=== PATIENT | male | born 1955 | race African-American/Black ===

== ENCOUNTER 2018-09-01 08:25 | Inpatient (IN) ==
[2018-09-01] MEDS ORDERED: SODIUM CHLORIDE 0.9% 1,000 ML IV STA (10:41)
[2018-09-01] MEDS ORDERED: ONDANSETRON ODT 4 MG TABLET PO STA (10:41)
[2018-09-01] MEDS ORDERED: KETOROLAC 30 MG/1 ML VIAL IV STA (10:41)
[2018-09-01 11:01] LABS: Basophils # 0.1 10*3/uL (0.0-0.2); Basophils % 0.3 % (0.0-0.8); Eosinophils % 0.1 % (0.00-10.9); Hematocrit 27.9 VOL% (42.0-52.0); Hemoglobin 8.2 GM/DL (14.0-18.0); Immature Granulocytes % 0.6 %; Lymphocytes # 1.6 10*3/uL (1.4-4.0); Lymphocytes % 9.7 % (21.2-54.2); Mean Corpuscular HGB Conc 29.4 GM/DL (32-36); Mean Corpuscular Hemoglobin 23 PG (27-34); Mean Corpuscular Volume 77.9 FL (87-102); Mean Platelet Volume 11.5 FL (9.6-12.0); Monocytes % 12.3 % (1.7-12.7); Neutrophils # 12.7 10*3/uL (1.4-7.4); Platelet Count 418 T/CUMM (130-400); Red Blood Count 3.58 MC/CUMM (3.8-5.5); Red Cell Distribution Width 16.7 % (9.3-17.3); White Blood Count 16.5 T/CUMM (4-12)
[2018-09-01 11:28] LABS: Alanine Aminotransferase 42 U/L (16-61); Albumin 4.7 G/DL (3.4-5.0); Alkaline Phosphatase 74 U/L (45-117); Aspartate Amino Transferase 19 U/L (0-37); Blood Urea Nitrogen 38 MG/DL (7-18); Calcium 9.9 MG/DL (8.5-10.1); Glucose 122 MG/DL (74-106); Osmolality,Calculated 282.8 MOS/KG (273-304); Potassium 3.8 MMOL/L (3.5-5.1); Sodium 137 MMOL/L (136-145); Total Protein 8.9 G/DL (6.4-8.3)
[2018-09-01 13:03] LABS: Apearance,Urine Slightly Hazy (Clear); Bilirubin,Urine Negative (Negative); Blood, Urine Negative (Negative); Glucose,Urine (UA) Negative (Negative); Granular Casts,Urine 1 /LPF (0-1); Hyaline Casts,Urine 4 /LPF (0-3); Ketones,Urine Negative (Negative); Mucus,Urine Occasional /LPF (Occasional); Nitrite,Urine Negative (Negative); Protein,Urine Negative; RBC,Urine 1 /HPF (0-4); Urine Color Yellow (Yellow); Urine Specific Gravity 1.018 (1.001-1.035); Urine Urobilinogen < 2.0 EU/DL (0.2-1.0); WBC,Urine 2 /HPF (0-6)
[2018-09-01] MEDS ORDERED: ONDANSETRON 4 MG/2 ML VIAL IV PRN (13:06)
[2018-09-01] MEDS ORDERED: ACETAMINOPHEN 325 MG TABLET PO PRN (13:06)
[2018-09-01] MEDS ORDERED: MINERAL OIL ENEMA 133 ML BOTTLE RECTAL PRN (13:10)
[2018-09-01] MEDS ORDERED: MINERAL OIL ENEMA 133 ML BOTTLE RECTAL ONE (13:10)
[2018-09-01] MEDS: LACTULOSE 20 GM/30 ML UDCUP PO SCH ×2 (14:36→17:51)
[2018-09-01] MEDS: SODIUM CHLORIDE 0.45% 1,000 ML IV SCH (14:36)
[2018-09-01] MEDS ORDERED: HYDROCORTISONE 2.5% RECTAL CREAM 30 GM TUBE TOP PRN (15:12)
[2018-09-01] MEDS: DOCUSATE SODIUM 100 MG CAPSULE PO SCH ×2 (17:05→20:33)
[2018-09-01] MEDS: POLYETHYLENE GLYCOL POWDER 17 GM PACK PO SCH ×2 (17:05→20:33)
[2018-09-01] MEDS: cefTRIAXone 2,000 MG in SYRINGE 1 EACH IV SCH (17:06)
[2018-09-01] MEDS: ENOXAPARIN 40 MG/0.4 ML SYRINGE SUBCUT SCH (20:33)
[2018-09-01] MEDS ORDERED: SENNA 8.6 MG TABLET PO SCH (21:00)
[2018-09-02] MEDS: LACTULOSE 20 GM/30 ML UDCUP PO SCH ×4 (01:12→08:37)
[2018-09-02 06:47] LABS: Basophils % 0.2 % (0.0-0.8); Eosinophils % 0.1 % (0.00-10.9); Hematocrit 24.2 VOL% (42.0-52.0); Hemoglobin 7.2 GM/DL (14.0-18.0); Immature Granulocytes % 0.7 %; Immature Granulocytes Absolute 0.09 #; Lymphocytes # 1.1 10*3/uL (1.4-4.0); Lymphocytes % 8.9 % (21.2-54.2); Mean Corpuscular HGB Conc 29.8 GM/DL (32-36); Mean Corpuscular Hemoglobin 23 PG (27-34); Mean Corpuscular Volume 77.8 FL (87-102); Mean Platelet Volume 11.1 FL (9.6-12.0); Monocytes # 1.3 10*3/uL (0.11-0.8); Monocytes % 10.5 % (1.7-12.7); Neutrophils # 10.1 10*3/uL (1.4-7.4); Neutrophils % 79.6 % (38.7-73.9); Platelet Count 303 T/CUMM (130-400); Red Blood Count 3.11 MC/CUMM (3.8-5.5); Red Cell Distribution Width 16.5 % (9.3-17.3); White Blood Count 12.6 T/CUMM (4-12)
[2018-09-02 06:50] LABS: Basophils % 0.2 % (0.0-0.8); Eosinophils % 0.1 % (0.00-10.9); Hematocrit 23.8 VOL% (42.0-52.0); Hemoglobin 7.1 GM/DL (14.0-18.0); Immature Granulocytes % 0.5 %; Immature Granulocytes Absolute 0.07 #; Lymphocytes # 1.1 10*3/uL (1.4-4.0); Lymphocytes % 8.1 % (21.2-54.2); Mean Corpuscular HGB Conc 29.8 GM/DL (32-36); Mean Corpuscular Hemoglobin 23 PG (27-34); Mean Corpuscular Volume 77.3 FL (87-102); Mean Platelet Volume 10.9 FL (9.6-12.0); Monocytes # 1.3 10*3/uL (0.11-0.8); Monocytes % 9.7 % (1.7-12.7); Neutrophils # 10.9 10*3/uL (1.4-7.4); Neutrophils % 81.4 % (38.7-73.9); Platelet Count 320 T/CUMM (130-400); Red Blood Count 3.08 MC/CUMM (3.8-5.5); Red Cell Distribution Width 16.4 % (9.3-17.3); White Blood Count 13.4 T/CUMM (4-12)
[2018-09-02 07:25] LABS: Ferritin 20.8 ng/ml (26-388)
[2018-09-02 07:31] LABS: Calcium 8.9 MG/DL (8.5-10.1); Osmolality,Calculated 279.2 MOS/KG (273-304); Potassium 4.1 MMOL/L (3.5-5.1); Thyroid Stimulating Hormone 0.41 uIU/ml (0.358-3.74)
[2018-09-02 07:36] LABS: Folate 12.9 NG/ML (5.4-24.0); Vitamin B12 687 PG/ML (211-911)
[2018-09-02 07:58] LABS: Sedimentation Rate-Westergren 100 MM/HR (0-20)
[2018-09-02] MEDS: SODIUM CHLORIDE 0.45% 1,000 ML IV SCH ×4 (08:34→20:44)
[2018-09-02] MEDS: amLODIPine 5 MG TABLET PO SCH (08:34)
[2018-09-02] MEDS: POLYETHYLENE GLYCOL POWDER 17 GM PACK PO SCH ×2 (08:35→20:44)
[2018-09-02] MEDS: DOCUSATE SODIUM 100 MG CAPSULE PO SCH ×2 (08:35→20:44)
[2018-09-02] MEDS ORDERED: IRON SUCROSE 300 MG in SODIUM CHLORIDE 0.9% 100 ML IV ONE (09:31)
[2018-09-02] MEDS ORDERED: SODIUM CHLORIDE 0.9% 1,000 ML IV PRN (09:32)
[2018-09-02] MEDS: cefTRIAXone 2,000 MG in SYRINGE 1 EACH IV SCH (16:31)
[2018-09-02] MEDS: CYPROHEPTADINE 4 MG TABLET PO SCH (16:31)
[2018-09-02 17:26] LABS: Hematocrit 26.7 VOL% (42.0-52.0); Hemoglobin 7.9 GM/DL (14.0-18.0)
[2018-09-02] MEDS: traZODone 50 MG TABLET PO PRN (20:42)
[2018-09-02] MEDS: ENOXAPARIN 40 MG/0.4 ML SYRINGE SUBCUT SCH (20:42)
[2018-09-03] MEDS: CYPROHEPTADINE 4 MG TABLET PO SCH ×4 (01:29→20:34)
[2018-09-03 05:58] LABS: Basophils # 0.1 10*3/uL (0.0-0.2); Basophils % 0.5 % (0.0-0.8); Eosinophils # 0.2 10*3/uL (0.0-0.87); Eosinophils % 1.8 % (0.00-10.9); Hematocrit 24.9 VOL% (42.0-52.0); Hemoglobin 7.4 GM/DL (14.0-18.0); Immature Granulocytes % 0.2 %; Immature Granulocytes Absolute 0.02 #; Lymphocytes # 2.5 10*3/uL (1.4-4.0); Lymphocytes % 25.4 % (21.2-54.2); Mean Corpuscular HGB Conc 29.7 GM/DL (32-36); Mean Corpuscular Hemoglobin 24 PG (27-34); Mean Platelet Volume 12.3 FL (9.6-12.0); Monocytes % 10.2 % (1.7-12.7); Neutrophils # 6.1 10*3/uL (1.4-7.4); Neutrophils % 61.9 % (38.7-73.9); Platelet Count 291 T/CUMM (130-400); Red Blood Count 3.15 MC/CUMM (3.8-5.5); Red Cell Distribution Width 16.6 % (9.3-17.3); White Blood Count 9.9 T/CUMM (4-12)
[2018-09-03 06:13] LABS: Calcium 8.5 MG/DL (8.5-10.1); Osmolality,Calculated 278.8 MOS/KG (273-304); Potassium 3.9 MMOL/L (3.5-5.1)
[2018-09-03] MEDS: SODIUM CHLORIDE 0.45% 1,000 ML IV SCH ×2 (07:15→14:40)
[2018-09-03] MEDS: POLYETHYLENE GLYCOL POWDER 17 GM PACK PO SCH ×2 (08:37→20:39)
[2018-09-03] MEDS: amLODIPine 5 MG TABLET PO SCH (08:38)
[2018-09-03] MEDS: DOCUSATE SODIUM 100 MG CAPSULE PO SCH ×2 (08:42→20:34)
[2018-09-03] MEDS ORDERED: SODIUM CHLORIDE 0.9% 1,000 ML IV PRN (08:44)
[2018-09-03 08:56] LABS: Hemoglobin A1 (Alkaline) 97.5 % (96.5-98.5); Hemoglobin A2 (Alkaline) 2.5 % (1.5-3.5)
[2018-09-03] MEDS ORDERED: HYDROCORTISONE 25 MG SUPP RECTAL PRN (13:47)
[2018-09-03 14:13] LABS: Hematocrit 28.9 VOL% (42.0-52.0); Hemoglobin 8.7 GM/DL (14.0-18.0)
[2018-09-03] MEDS: cefTRIAXone 2,000 MG in SYRINGE 1 EACH IV SCH (14:48)
[2018-09-03] MEDS: ENOXAPARIN 40 MG/0.4 ML SYRINGE SUBCUT SCH (20:34)
[2018-09-03] MEDS: traZODone 50 MG TABLET PO PRN (20:34)
[2018-09-04] MEDS: SODIUM CHLORIDE 0.45% 1,000 ML IV SCH (05:50)
[2018-09-04 06:04] LABS: Basophils # 0.1 10*3/uL (0.0-0.2); Basophils % 0.8 % (0.0-0.8); Eosinophils # 0.2 10*3/uL (0.0-0.87); Eosinophils % 2.9 % (0.00-10.9); Hematocrit 26.8 VOL% (42.0-52.0); Hemoglobin 8.1 GM/DL (14.0-18.0); Immature Granulocytes % 0.3 %; Immature Granulocytes Absolute 0.02 #; Lymphocytes # 2.2 10*3/uL (1.4-4.0); Lymphocytes % 29.9 % (21.2-54.2); Mean Corpuscular HGB Conc 30.2 GM/DL (32-36); Mean Corpuscular Hemoglobin 24 PG (27-34); Mean Corpuscular Volume 79.5 FL (87-102); Mean Platelet Volume 11.5 FL (9.6-12.0); Monocytes # 0.8 10*3/uL (0.11-0.8); Monocytes % 11.3 % (1.7-12.7); Neutrophils # 3.9 10*3/uL (1.4-7.4); Neutrophils % 54.8 % (38.7-73.9); Platelet Count 270 T/CUMM (130-400); Red Blood Count 3.37 MC/CUMM (3.8-5.5); Red Cell Distribution Width 16.5 % (9.3-17.3); White Blood Count 7.2 T/CUMM (4-12)
[2018-09-04 06:24] LABS: Calcium 8.6 MG/DL (8.5-10.1)
[2018-09-04 09:08] LABS: Albumin (SPE) 4.8 G/DL (3.2-5.3); Albumin (SPE) Rel % 60.4 %; Alpha 1 (SPE) 0.3 G/DL (0.1-0.4); Alpha 1 (SPE) Rel % 3.6 %; Alpha 2 (SPE) Rel % 12.3 %; Beta (SPE) Rel % 12.9 %; Gamma (SPE) 0.9 G/DL (0.7-1.7); Gamma (SPE) Rel % 10.8 %
[2018-09-04] MEDS: CYPROHEPTADINE 4 MG TABLET PO SCH (10:06)
[2018-09-04] MEDS: DOCUSATE SODIUM 100 MG CAPSULE PO SCH (10:06)
[2018-09-04] MEDS: amLODIPine 5 MG TABLET PO SCH (10:07)
[2018-09-04] MEDS: POLYETHYLENE GLYCOL POWDER 17 GM PACK PO SCH (10:07)
[2018-09-04 11:05] LABS: Immuno Free Light Chain Kappa 2.13 MG/DL (0.33-1.94); Immuno Free Light Chain Lambda 1.99 MG/DL (0.57-2.63); Immuno Free Light Chain Ratio 1.07 MG/DL (0.26-1.65)
[2018-09-04 12:17] LABS: Immunoglobulin A 221 MG/DL (70-400); Immunoglobulin G 776 MG/DL (700-1600); Immunoglobulin M 86 MG/DL (40-230)
[2018-09-04 13:53] VITALS: BP 140/77
[2018-09-04 14:06] LABS: Total Volume,Urine 1800 ML (400-2000)
[2018-09-04 14:12] LABS: Total Protein 24 Hr Ur Result 288 MG/24HR (0-149.1)
[2018-09-05 08:36] LABS: 24 Hr Protein (Bench) 288 MG/24HR (0-149.1)
[2018-09-07 22:01] LABS: IgA Serum (MAYO) 231 mg/dL (61 - 356)
[2018-09-13 10:11] LABS: Tissue Transglutaminase IgA Ab < 1.2 U/mL
== END 2018-09-04 14:46 | disposition home or self-care (01) | DRG 392 ==
LOC: N.ED 08:25 → N.5E 13:06 → SUATTDRO 13:06 → N.5E 15:00
PROVIDERS: ADMIT Internal Medicine; ATTEND Internal Medicine